=== PATIENT | male | born 1970 ===

== ENCOUNTER 2022-12-06 04:24 | Day surgery (SDC) | payer OTHER ==
[2022-12-04 14:19] VITALS: BMI 28.5
[2022-12-06] MEDS ORDERED: LIDOCAINE HCL/PF 2% SDV 5ML VIAL ONE (11:17)
[2022-12-06] MEDS ORDERED: PROPOFOL 40 ML ONE (11:17)
[2022-12-06] MEDS ORDERED: ceFAZolin SODIUM 1 GM VIAL IVPB ONE (11:37)
[2022-12-06] MEDS ORDERED: BACITRACIN ZINC 15 GM TUBE TOPICAL OINTMENT ONE (12:32)
[2022-12-06] MEDS ORDERED: ceFAZolin SODIUM 1 GM VIAL ONE ×2 (12:43)
[2022-12-06] MEDS ORDERED: KETOROLAC TROMETHAMINE 30 MG/1 ML VIAL ONE (12:43)
[2022-12-06] MEDS ORDERED: ONDANSETRON 4 MG/2 ML VIAL ONE (12:43)
[2022-12-06] MEDS ORDERED: DEXAMETHASONE SOD PHOSPHATE 4 MG/1 ML VIAL ONE (12:43)
[2022-12-06] MEDS ORDERED: ONDANSETRON 4 MG/2 ML VIAL IVPUSH PRN (13:08)
[2022-12-06] MEDS ORDERED: oxyCODONE HCL 5 MG TABLET PO PRN (13:08)
[2022-12-06 14:25] VITALS: RESP 18
[2022-12-06] MEDS ORDERED: oxyCODONE HCL 5 MG TABLET ONE (14:51)
[2022-12-06] MEDS ORDERED: oxyCODONE HCL 5 MG TABLET PO ONE (14:57)
[2022-12-06 16:05] VITALS: BP 126/60; PULSE 64; TEMP 98.4
== END 2022-12-06 15:50 | disposition home or self-care (01) ==
LOC: JASU-SURG 04:24
PROVIDERS: ATTEND Urology
PROC: 0V503ZZ Destruction of Prostate, Percutaneous Approach (ICD-10-PCS; principal; 2022-12-06 12:00)
DX: C61 Malignant neoplasm of prostate (principal)
CPT/HCPCS: 55873; C2618; 94760; C1769